=== PATIENT | male | born 1935 | race Caucasian/White ===

== ENCOUNTER 2016-10-20 09:30 | Emergency (ER) | payer OTHER ==
[2016-10-20] MEDS ORDERED: LASIX IV ONE (09:50)
--- NOTE | 2016-10-20 09:55 | PROVIDER DOCUMENTATION ---
HPI-Neurological Disorder - General Stated Complaint: AMS Time Seen by Provider: 10/20/16 09:34 Source: patient, EMS Allergies/Adverse Reactions: Patient Allergies Allergy/AdvReac Type Severity Reaction Status Date / Time No Known Allergies Allergy Verified 07/03/15 12:24 Home Medications: Home Medication List Medication Instructions Recorded Confirmed Last Taken Type ATORVAstatin [Lipitor] 10 mg PO HS 10/20/16 10/20/16 10/19/16 20:00 History 10 MG Acetaminophen [Tylenol] 500 mg PO BID 10/20/16 10/20/16 10/20/16 07:00 History 500 MG Alfuzosin E.r. [Uroxatral] 10 mg PO HS 10/20/16 10/20/16 10/19/16 20:00 History 10 MG Amoxicillin 875 mg PO BID 10/20/16 10/20/16 10/20/16 07:00 History 875 MG Betamethasone/Propylene Glyc 15 gm TP DIRECTED 10/20/16 10/20/16 10/20/16 07: 00 History [Betamethasone Dp Aug 0.05% Crm] 15 GM Colchicine 0.6 mg PO HS 10/20/16 10/20/16 10/19/16 20:00 History 0.6 MG Dabigatran Etexilate Mesylate 150 mg PO BID 10/20/16 10/20/16 10/20/16 07:00 History [Pradaxa] 150 MG Furosemide [Lasix] 40 mg PO BID 10/20/16 10/20/16 10/20/16 07:00 History 40 MG Irbesartan/Hydrochlorothiazide 1 dose PO DAILY 10/20/16 10/20/16 10/20/16 07:00 History [Irbesartan-Hctz 300-12.5 mg Tb] 1 DOSE Ketotifen 0.025% Oph Soln [Zaditor 1 dose BOTH EYES BID 10/20/16 10/20/16 07:00 History 0.025% Oph Soln] 1 DOSE Ranitidine HCl [Zantac 75] 75 mg PO BID 10/20/16 10/20/16 10/20/16 07:00 History 75 MG Triamcinolone Acetonide [Nasacort] 1 spray INH HS 10/20/16 10/20/16 10/19/16 20: 00 History 1 SPRAY Vit C/Vit E Acetate/Lutein/Min 1 dose PO DAILY 10/20/16 10/20/16 10/20/16 07:00 History [Ocuvite Lutein Capsule] 1 DOSE - History of Present Illness-Neuro Nature of Presenting Problem: patient is a 81 y/o M that presents to the ER with generalized weakness x 2 to 3 days and confusion that began this am. No fever/chills, n/v/d. Recently had chemo. Denies falling recently Severity: reports: mild, moderate Onset/Duration: reports: gradual, 2 days ago, 3 days ago Timing: reports: still present, constant Context: denies: impaired speech, paresthesia, facial droop, falling Character of Altered Mental Status: reports: confused Character of Deficits: reports: new weakness New weakness or altered sensation location:: reports: general (diffuse) Cognitive Baseline: alert, oriented x3 Gait Baseline: walks without assistance Associated Symptoms: reports: confusion, weakness. denies: headache, decreased ability to walk or stand, dizziness, fever/chills, seizures, sleepy, slurred speech, vomiting Similar Symptoms Previously?: No Recently seen or treated by another doctor?: No Review of Systems - Adult - REVIEW OF SYSTEMS - ADULT Constitutional: denies: chills, fever Eyes: reports: no symptoms reported Ears, Nose, Mouth & Throat: reports: no symptoms reported Cardiovascular: reports: edema. denies: chest pain, palpitations, syncope Respiratory: reports: no symptoms reported Gastrointestinal: denies: abdominal pain, diarrhea, nausea, vomiting Genitourinary: denies: dysuria, frequency, hematuria, urgency Musculoskeletal: reports: no symptoms reported Integumentary: reports: no symptoms reported Neurological: reports: other (ams). denies: dizziness/vertigo, numbness, seizure, slurred speech Psychiatric: reports: no symptoms reported Endocrine: reports: no symptoms reported Hematologic/Lymphatic: reports: no symptoms reported Allergic/Immunologic: reports: no symptoms reported All Other Systems: Reviewed and Negative Past History - Adult - PAST MEDICAL HISTORY-ADULT Review of Records: reports: Old Records Reviewed, Nursing Assessment Review, Medications Reviewed Cardiovascular: reports: HTN Endocrine/Immune: reports: Diabetes - PRIOR SURGERIES/PROCEDURES Surgical/Procedure History: reports: reviewed, not pertinent - IMMUNIZATION STATUS Childhood Immunizations: See Nurse Assessment Flu Vaccine: See Nurse Assessment - FAMILY HISTORY Family History: reviewed, not pertinent - SOCIAL HISTORY Smoking: non-smoker Alcohol Use Frequency: rarely Living Situation: family Physical Exam- Neurological - Physical Exam-Neuro Initial Vital Signs Reviewed: Yes General Appearance: alert, no apparent distress Eye Exam: bilateral eye: normal inspection, PERRL HENMT: normal ENT inspection Head Injury: no evidence of injury. negative: ecchymosis, lacerations Neck: full range of motion, normal inspection. negative: lymphadenopathy Respiratory: lungs clear, normal breath sounds, no respiratory distress, no accessory muscle use Cardiovascular: regular rate, rhythm, no edema, no murmur Abdominal Exam: normal bowel sounds, non tender, soft, no organomegaly, no pulsatile mass Extremity: no calf tenderness, normal capillary refill, pelvis stable, pedal edema spine surgeon Exam: normal hearing, normal speech, PERRL Motor/Sensory: no motor deficit, no sensory deficit Neurologic: grossly normal, no motor/sensory deficits Integumentary: normal color, warm/dry Psych/Mental Status: normal mood/affect, normal thought content, normal thought process, oriented x 3 Progress - PLAN OF CARE/RESULTS Progress/Plan/Lab Results: plan of care-labs,ekg, meds, head ct, xray Vital Signs Pulse Resp BP Pulse Ox 10/20/16 10:15 60 17 141/64 95 10/20/16 10:07 60 14 144/60 97 No Known Allergies Allergy (Verified 07/03/15 12:24) ATORVAstatin [Lipitor] 10 mg PO HS 10/20/16 Acetaminophen [Tylenol] 500 mg PO BID 10/20/16 Alfuzosin E.r. [Uroxatral] 10 mg PO HS 10/20/16 Amoxicillin 875 mg PO BID 10/20/16 Betamethasone/Propylene Glyc [Betamethasone Dp Aug 0.05% Crm] 15 gm TP DIRECTED 10/20/16 Colchicine 0.6 mg PO HS 10/20/16 Dabigatran Etexilate Mesylate [Pradaxa] 150 mg PO BID 10/20/16 Furosemide [Lasix] 40 mg PO BID 10/20/16 Irbesartan/Hydrochlorothiazide [Irbesartan-Hctz 300-12.5 mg Tb] 1 dose PO DAILY 10/20/16 Ketotifen 0.025% Oph Soln [Zaditor 0.025% Oph Soln] 1 dose BOTH EYES BID Ranitidine HCl [Zantac 75] 75 mg PO BID 10/20/16 Triamcinolone Acetonide [Nasacort] 1 spray INH HS 10/20/16 Vit C/Vit E Acetate/Lutein/Min [Ocuvite Lutein Capsule] 1 dose PO DAILY Laboratory 10/20/16 10/20/16 10/20/16 10:30 10:10 10:10 WBC RBC Hgb Hct MCV MCH MCHC RDW Std Deviation Plt Count MPV Immature Gran % (Auto) Neut % (Auto) Lymph % (Auto) [place] % (Auto) Eos % (Auto) Baso % (Auto) Immature Gran # (Auto) Neut # (Auto) Lymph # (Auto) [place] # (Auto) Eos # (Auto) Baso # (Auto) PT INR PTT (Actin FS) Sodium Potassium Chloride Carbon Dioxide Anion Gap BUN Creatinine Estimated GFR/1.73 m2 BUN/Creatinine Ratio Glucose Calculated Osmolality Calcium Total Bilirubin AST ALT Alkaline Phosphatase Creatine Kinase Troponin T 0.020 Nnl-P-Llwqnxoisof Pept 2035 H Total Protein Albumin Globulin Albumin/Globulin Ratio Urine Source CLEAN CATCH Urine Color YELLOW Urine Turbidity CLEAR Urine pH 5.5 Ur Specific [place] 1.022 Urine Protein TRACE A Ur Glucose (Stick) NEGATIVE Ur Ketones (Stick) NEGATIVE Urine Blood NEGATIVE Urine Nitrite NEGATIVE Urine Bilirubin NEGATIVE Urobilinogen Dipstick NORMAL Urine Leukocytes NEGATIVE Urine WBC (Auto) <10 Urine RBC (Auto) <10 U Epithel Cells (Auto) <10 Urine Bacteria (Auto) NEGATIVE Plasma/Serum Ethyl Alc 10/20/16 10/20/16 10/20/16 10:10 10:10 10:10 WBC 3.19 L RBC 2.52 L Hgb 8.5 L Hct 28.0 L MCV 111.1 H MCH 33.7 H MCHC 30.4 L RDW Std Deviation 15.4 H Plt Count 115 L MPV 13.1 H Immature Gran % (Auto) 0.0 Neut % (Auto) 58.9 Lymph % (Auto) 27.9 [place] % (Auto) 10.7 H Eos % (Auto) 1.9 Baso % (Auto) 0.6 Immature Gran # (Auto) 0.00 Neut # (Auto) 1.88 Lymph # (Auto) 0.89 L [place] # (Auto) 0.34 Eos # (Auto) 0.06 Baso # (Auto) 0.02 PT 14.6 H INR 1.37 PTT (Actin FS) 44.1 H Sodium 140 Potassium 4.9 Chloride 105 Carbon Dioxide 24 L Anion Gap 11 BUN 36 H Creatinine 1.2 Estimated GFR/1.73 m2 58 BUN/Creatinine Ratio 30 Glucose 89 Calculated Osmolality 287 Calcium 8.7 L Total Bilirubin 0.62 AST 19 ALT 13 Alkaline Phosphatase 67 Creatine Kinase 45 Troponin T Fiu-X-Xepyitgdlzy Pept Total Protein 5.7 L Albumin 3.7 Globulin 2.0 Albumin/Globulin Ratio 1.9 Urine Source Urine Color Urine Turbidity Urine pH Ur Specific [place] Urine Protein Ur Glucose (Stick) Ur Ketones (Stick) Urine Blood Urine Nitrite Urine Bilirubin Urobilinogen Dipstick Urine Leukocytes Urine WBC (Auto) Urine RBC (Auto) U Epithel Cells (Auto) Urine Bacteria (Auto) Plasma/Serum Ethyl Alc 10/20/16 10:10 WBC RBC Hgb Hct MCV MCH MCHC RDW Std Deviation Plt Count MPV Immature Gran % (Auto) Neut % (Auto) Lymph % (Auto) [place] % (Auto) Eos % (Auto) Baso % (Auto) Immature Gran # (Auto) Neut # (Auto) Lymph # (Auto) [place] # (Auto) Eos # (Auto) Baso # (Auto) PT INR PTT (Actin FS) Sodium Potassium Chloride Carbon Dioxide Anion Gap BUN Creatinine Estimated GFR/1.73 m2 BUN/Creatinine Ratio Glucose Calculated Osmolality Calcium Total Bilirubin AST ALT Alkaline Phosphatase Creatine Kinase Troponin T Dnx-H-Atqjhoaomjs Pept Total Protein Albumin Globulin Albumin/Globulin Ratio Urine Source Urine Color Urine Turbidity Urine pH Ur Specific [place] Urine Protein Ur Glucose (Stick) Ur Ketones (Stick) Urine Blood Urine Nitrite Urine Bilirubin Urobilinogen Dipstick Urine Leukocytes Urine WBC (Auto) Urine RBC (Auto) U Epithel Cells (Auto) Urine Bacteria (Auto) Plasma/Serum Ethyl Alc Vital Signs Pulse Resp BP Pulse Ox 10/20/16 10:15 60 17 141/64 95 10/20/16 10:07 60 14 144/60 97 No Known Allergies Allergy (Verified 07/03/15 12:24) ATORVAstatin [Lipitor] 10 mg PO HS 10/20/16 Acetaminophen [Tylenol] 500 mg PO BID 10/20/16 Alfuzosin E.r. [Uroxatral] 10 mg PO HS 10/20/16 Amoxicillin 875 mg PO BID 10/20/16 Betamethasone/Propylene Glyc [Betamethasone Dp Aug 0.05% Crm] 15 gm TP DIRECTED 10/20/16 Colchicine 0.6 mg PO HS 10/20/16 Dabigatran Etexilate Mesylate [Pradaxa] 150 mg PO BID 10/20/16 Furosemide [Lasix] 40 mg PO BID 10/20/16 Irbesartan/Hydrochlorothiazide [Irbesartan-Hctz 300-12.5 mg Tb] 1 dose PO DAILY 10/20/16 Ketotifen 0.025% Oph Soln [Zaditor 0.025% Oph Soln] 1 dose BOTH EYES BID Ranitidine HCl [Zantac 75] 75 mg PO BID 10/20/16 Triamcinolone Acetonide [Nasacort] 1 spray INH HS 10/20/16 Vit C/Vit E Acetate/Lutein/Min [Ocuvite Lutein Capsule] 1 dose PO DAILY Laboratory 10/20/16 10/20/16 10/20/16 10:30 10:10 10:10 WBC RBC Hgb Hct MCV MCH MCHC RDW Std Deviation Plt Count MPV Immature Gran % (Auto) Neut % (Auto) Lymph % (Auto) [place] % (Auto) Eos % (Auto) Baso % (Auto) Immature Gran # (Auto) Neut # (Auto) Lymph # (Auto) [place] # (Auto) Eos # (Auto) Baso # (Auto) PT INR PTT (Actin FS) Sodium Potassium Chloride Carbon Dioxide Anion Gap BUN Creatinine Estimated GFR/1.73 m2 BUN/Creatinine Ratio Glucose Calculated Osmolality Calcium Total Bilirubin AST ALT Alkaline Phosphatase Creatine Kinase Troponin T 0.020 Vng-I-Dbvhcsiylut Pept 2035 H Total Protein Albumin Globulin Albumin/Globulin Ratio Urine Source CLEAN CATCH Urine Color YELLOW Urine Turbidity CLEAR Urine pH 5.5 Ur Specific [place] 1.022 Urine Protein TRACE A Ur Glucose (Stick) NEGATIVE Ur Ketones (Stick) NEGATIVE Urine Blood NEGATIVE Urine Nitrite NEGATIVE Urine Bilirubin NEGATIVE Urobilinogen Dipstick NORMAL Urine Leukocytes NEGATIVE Urine WBC (Auto) <10 Urine RBC (Auto) <10 U Epithel Cells (Auto) <10 Urine Bacteria (Auto) NEGATIVE Plasma/Serum Ethyl Alc 10/20/16 10/20/16 10/20/16 10:10 10:10 10:10 WBC 3.19 L RBC 2.52 L Hgb 8.5 L Hct 28.0 L MCV 111.1 H MCH 33.7 H MCHC 30.4 L RDW Std Deviation 15.4 H Plt Count 115 L MPV 13.1 H Immature Gran % (Auto) 0.0 Neut % (Auto) 58.9 Lymph % (Auto) 27.9 [place] % (Auto) 10.7 H Eos % (Auto) 1.9 Baso % (Auto) 0.6 Immature Gran # (Auto) 0.00 Neut # (Auto) 1.88 Lymph # (Auto) 0.89 L [place] # (Auto) 0.34 Eos # (Auto) 0.06 Baso # (Auto) 0.02 PT 14.6 H INR 1.37 PTT (Actin FS) 44.1 H Sodium 140 Potassium 4.9 Chloride 105 Carbon Dioxide 24 L Anion Gap 11 BUN 36 H Creatinine 1.2 Estimated GFR/1.73 m2 58 BUN/Creatinine Ratio 30 Glucose 89 Calculated Osmolality 287 Calcium 8.7 L Total Bilirubin 0.62 AST 19 ALT 13 Alkaline Phosphatase 67 Creatine Kinase 45 Troponin T Ntd-L-Hajylgebdws Pept Total Protein 5.7 L Albumin 3.7 Globulin 2.0 Albumin/Globulin Ratio 1.9 Urine Source Urine Color Urine Turbidity Urine pH Ur Specific [place] Urine Protein Ur Glucose (Stick) Ur Ketones (Stick) Urine Blood Urine Nitrite Urine Bilirubin Urobilinogen Dipstick Urine Leukocytes Urine WBC (Auto) Urine RBC (Auto) U Epithel Cells (Auto) Urine Bacteria (Auto) Plasma/Serum Ethyl Alc 10/20/16 10:10 WBC RBC Hgb Hct MCV MCH MCHC RDW Std Deviation Plt Count MPV Immature Gran % (Auto) Neut % (Auto) Lymph % (Auto) [place] % (Auto) Eos % (Auto) Baso % (Auto) Immature Gran # (Auto) Neut # (Auto) Lymph # (Auto) [place] # (Auto) Eos # (Auto) Baso # (Auto) PT INR PTT (Actin FS) Sodium Potassium Chloride Carbon Dioxide Anion Gap BUN Creatinine Estimated GFR/1.73 m2 BUN/Creatinine Ratio Glucose Calculated Osmolality Calcium Total Bilirubin AST ALT Alkaline Phosphatase Creatine Kinase Troponin T Byt-F-Gzwlbtlepne Pept Total Protein Albumin Globulin Albumin/Globulin Ratio Urine Source Urine Color Urine Turbidity Urine pH Ur Specific [place] Urine Protein Ur Glucose (Stick) Ur Ketones (Stick) Urine Blood Urine Nitrite Urine Bilirubin Urobilinogen Dipstick Urine Leukocytes Urine WBC (Auto) Urine RBC (Auto) U Epithel Cells (Auto) Urine Bacteria (Auto) Plasma/Serum Ethyl Alc Orders Category Date Time Status Cardiac Monitoring DIRECTED Care 10/20/16 09:48 Active Finger Stick Blood Sugar (ED) DIRECTED Care 10/20/16 09:48 Active Saline Loc NOW Care 10/20/16 09:48 Active CHEST-PORTABLE [RAD] Stat Exams 10/20/16 09:49 Completed HEAD W/O CONTRAST [CT] Stat Exams 10/20/16 09:49 Taken ALCOHOL BLOOD Stat Lab 10/20/16 10:10 Completed BNP [PRO B-NATRIURETIC PEPTIDE] Stat Lab 10/20/16 10:10 Completed CBC WITH ELECTRONIC DIFF [HEME] Stat Lab 10/20/16 10:10 Completed CK PROFILE [SP CHEM] Stat Lab 10/20/16 10:10 Completed COMPREHENSIVE METABOLIC PANEL [CHEM] Stat Lab 10/20/16 10:10 Completed PROTIME WITH INR [COAG] Stat Lab 10/20/16 10:10 Completed PTT [COAG] Stat Lab 10/20/16 10:10 Completed TROPONIN T Stat Lab 10/20/16 10:10 Completed URINALYSIS W/POSS RFLX CULT [URINALYSIS] Stat Lab 10/20/16 10:30 Completed Furosemide [Lasix] Med 10/20/16 09:50 Discontinued 40 mg IV NOW ONE Pulse Oximetry Stat Oth 10/20/16 09:48 Active EKG [EKG] Stat Ther 10/20/16 09:48 Ordered pt will be d/c home f/u with pcp, pt was clinically stable. - EKG 1 Time of EKG reading by physician:: 10:04 EKG Read and Signed by:: Nancy Sánchez EKG Interpretation (*Must complete 3 of following elements*): Abnormal Rate: 60 Rhythm: Wide QRS rhythm Moore: left QRS: NSIVCD ST Wave: non-specific ST changes - XRAY 1 XRAY Study: Chest Impression: Abnormal XRAY Interpretation: rt effusion(as 04/16/16), poor insp and possible edema - CT/MRI 1 CT Study: Head Impression: Normal CT Results: nad Departure - Departure Time of Disposition Order: 12:23 DIAGNOSIS: Weakness Disposition: HOME 01 Certified Medical Emergency: Emergent Condition: Stable Additional Instructions: ED Follow Up Instructions: You have been treated by a care provider in the Emergency Department. These instructions are being provided to you so you can have an understanding of how to care for yourself upon discharge. Upon discharge from the Emergency Department, you are responsible for making arrangements for follow-up care by a physician of your choice. Take all prescribed medications as directed. Return to the Emergency Department immediately for any new or worsening symptoms. You may call the Physician Referral phone number at [phone] to obtain a list of Physicians who are taking new patients. Attestation - Scribe Verification/Attestation Scribe:: Lei Rogers Acting as Scribe for:: Nancy Sánchez Scribnathalia documention review:: This chart was documented by a scribe and accurately reflects the service the provider performed and the decisions made by the provider. Physician Attestation - Physician Attestation I, the provider, attest to the following statement:: Nancy Sánchez Physician documentation Attestation:: This documentation recorded by the scribe accurately reflects the service I personally performed and the decisions made by me.
[2016-10-20 10:54] LABS: BILIRUBIN URINE NEGATIVE (NEGATIVE); BLOOD URINE NEGATIVE (NEGATIVE); COLOR YELLOW; GLUCOSE URINE NEGATIVE (NEGATIVE); LEUKOCYTES URINE NEGATIVE (NEGATIVE); NITRITE URINE NEGATIVE (NEGATIVE); PH URINE 5.5; PROTEIN URINE TRACE mg/dL (NEGATIVE); SP GRAVITY URINE 1.022; TURBIDITY URINE CLEAR (CLEAR); URINE CULTURE NEEDED? NO; URINE MICRO REVIEW NEEDED? NO; URINE SOURCE CLEAN CATCH; UROBILINOGEN URINE NORMAL (NORMAL)
[2016-10-20 10:54] LABS: BASO% 0.6 % (0.0-0.8); EOS# 0.06 X1000 (0.0-0.7); EOS% 1.9 % (0.0-10.0); HEMOGLOBIN 8.5 g/dL (14.0-18.0); LYMPH# 0.89 X1000 (1.2-3.4); LYMPH% 27.9 % (20.5-51.1); MANUAL DIFF NEEDED? NO; MCH 33.7 PG (27-31); MCHC 30.4 g/dL (33-37); MCV 111.1 FL (81-99); MONO# 0.34 X1000 (0.11-0.59); MONO% 10.7 % (1.7-9.3); MPV 13.1 FL (7.4-10.4); NEUT% 58.9 % (42.2-75.2); PLT 115 X1000 (130-400); RBC 2.52 XMIL (4.7-6.1)
[2016-10-20 10:55] LABS: UR EPITHELIAL CELLS <10 /HPF (<10); URINE BACTERIA NEGATIVE /HPF; URINE RBC <10 /HPF (<10); URINE WBC <10 /HPF (<10)
[2016-10-20 11:05] LABS: ALBUMIN 3.7 g/dL (3.5-5.0); CALCIUM 8.7 mg/dL (8.8-10.2); POTASSIUM 4.9 mmol/L (3.5-5.1); TOTAL BILIRUBIN 0.62 mg/dL (0.20-1.00); TOTAL PROTEIN 5.7 g/dL (6.3-8.3)
[2016-10-20 11:07] LABS: INR 1.37; PROTIME 14.6 Seconds (9.2-11.7)
[2016-10-20 11:12] LABS: PTT 44.1 Seconds (22.0-36.0)
--- NOTE | 2016-10-20 11:18 | Diag Imaging Result Document ---
PROCEDURE NAME: CHEST-PORTABLE - 10/20/2016 AP PORTABLE CHEST AT 1027 HOURS: FINDINGS: There is a large right pleural effusion. The inspiration is less optimal than on 04/16/2016. The possibility of pulmonary edema or pneumonia can't be excluded but the appearance is largely due to the poor inspiration. IMPRESSION: Right pleural effusion.
--- NOTE | 2016-10-20 12:52 | Diag Imaging Result Document ---
PROCEDURE NAME: HEAD W/O CONTRAST - 10/20/[address], 10/20/2016: A CT dose reduction protocol was used. COMPARISON: None. FINDINGS: There is mild atrophy. No intracranial mass or hemorrhage. The skull is intact. The sinuses, mastoids, and middle ears are clear. IMPRESSION: Negative exam. MTDD
--- NOTE | 2016-10-20 12:55 | EKG Report ---
Test Performed on : 10/20/2016 10:00:24 AM Test Reason : AMS Blood Pressure : / mmHG Vent. Rate : 060 BPM Atrial Rate : 057 BPM P-R Int : 000 ms QRS Dur : 170 ms QT Int : 484 ms P-R-T Axes : 000 -73 087 degrees QTc Int : 484 ms Wide QRS rhythm. Left axis deviation Nonspecific intraventricular block Possible Lateral infarct , age undetermined Abnormal ECG When compared with ECG of 03-JUL-2015 12:53, No significant change was found Unconfirmed Result
[2016-10-20 13:15] VITALS: BP 146/55
== END 2016-10-20 13:43 | disposition home or self-care (01) ==
LOC: EDBD → ED 09:30
DX: R53.1 Weakness (principal); R94.31 Abnormal electrocardiogram [ECG] [EKG]; R41.0 Disorientation, unspecified; R41.82 Altered mental status, unspecified; R60.9 Edema, unspecified; I10 Essential (primary) hypertension; E11.9 Type 2 diabetes mellitus without complications; Z79.899 Other long term (current) drug therapy; Z79.02 Long term (current) use of antithrombotics/antiplatelets
CPT/HCPCS: 70450; 71010; 80053; 81001; 82550; 83880; 84484; 85025; 85610; 85730; 93005; G0480; J1940; 80320